=== PATIENT | female | born 1950 | race Caucasian/White ===

== ENCOUNTER 2022-03-25 08:30 | Outpatient (RCR) | payer BC, SELFPAY ==
--- NOTE | 2022-04-22 16:12 | OT.OPODN ---
OT Outpatient Ortho Daily Note OT Outpatient Ortho Daily Note Start: 01/31/22 08:05 Freq: Status: Active Protocol: Document 03/25/22 18:50 LCN (Rec: 03/25/22 19:08 LUIS ALBERTO [id number]) E-signed By Marylu Price OTR/L, CLT Type of Note Type of Note Type of Note Daily Note,Discharge Note Visit Number 7 Insurance Information Insurance Information Medicare B Outpatient History/Precautions Insurance Information Insurance Information Medicare B Current Condition/Medical Diagnosis Referring Provider Shantell Mejias, Treatment Diagnosis Bilateral hand pain, B wrist pain Date of Onset 01/21/22 Other Precautions Osteopenia. 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 Walks and does light yoga with videos for fitness ( less active with COVID has questions about safer return to fitness. 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 Can still get pretty tender with 3 pt pinch position, but has increased her pinch strength for cornelius and lateral positions. . Diann Talley is a 71 year old active female who has been struggling with arthritic changes in several areas her body including Flowback bilateral knees and cervical areas. She has a prior history of osteopenia and cervical injury bone spur since her twenties after me an accident. Occasionally she will have numbness in your hands and has had lateral epicondylitis with therapy in the past. Currently she is struggling with bilateral hand pain, CMC hypersensitivity (to being bumped, resting on joints, and pain occasional waves of hand numbness in the glove distribution and generalized stiffness every morning. It is feeling hard to know when to stretch. To cope with this, patient will utilize some cold but it is not well tolerated in general, she feels much better. Will alternate between Tylenol arthritis and ibuprofen on harder days which is helpful for all of her arthritis areas and still very much needed. She has arthritis gloves, a wrist sleeve ( helps wrist, not thumb) and some OTC splints for TH that she finds difficult to work around. Is using an ergonomic keyboard ( that is feeling large for her hand size, sometimes irritates her epicondylitis) and vertical mouse (OK, harder with click and drag/copy/paste motions). OPening food packaging, using garden tools and writing are also challenging. OT OP Daily Ortho Note/Assessment Therapeutic Exercise Therapeutic Exercise Minutes (minutes) 25 Therapeutic Exercise Comments Reviewed HEP w end ROM holds for jt blocking of MP, IP,? Opposition?x 5 sec each ?x 2 sets of 5. OK to digit EX, CMC ABD and FL gentle active hand /tendon glides ( rory hook and table top), 5 reps, hold 3 sec each for B hands. Added gentle TH stabilization/hand stabilization exercises with yellow putty for gripping, flat fist, cornelius pinch, adductors and gross digit extension. Emphasized importance of intrinsic and extensor strengthening for supporting joint integrity. Therapeutic Activity Therapeutic Activity Comments . Wrist Goniometric Wrist Right Active Flexion (70-90 degrees) 85 Active Extension (60-70 degrees) 70 Active Ulnar Deviation (20-30 degrees) 40 H Active Radial Deviation (15-20 degrees) 25 H ROM Limitations Bony Restriction,Pain Left Active Flexion (70-90 degrees) 85 Active Extension (60-70 degrees) 85 H Active Ulnar Deviation (20-30 degrees) 55 H Active Radial Deviation (15-20 degrees) 25 H ROM Limitations Bony Restriction,Pain Wrist Gross Strength Wrist Right Flexion 4 Good Extension 4 Good Ulnar Deviation 4 Good Radial Deviation 4 Good Goniometric Comments Goniometric Comments Goniometric Comments 02/11/22- Compositie flexion of R IF 2.0 cm at start, 1.0 post. MF is 1.3, RF .5 , SF . 5 cm. Less pain with gripping. Hasn't weeded garden yet. Cervical FLexion and extension , B rotation limited by 10 degrees at end range. Lateral flexion is 25 of 45 degrees and pulls in upper trapezials, SCM and levator. B SH WNL. Composite flexion of L hand is WNL for RF/SF and 1.4 of . 5 cm L IF. R hand is WNL for RF/SF. 1.3 cm MF and 2.0 cm IF. TH toses base of SF MCP head but tender at B CMCs Hand Pinch/Airplane Pilot Supervisor Strength Hand Left Airplane Pilot Supervisor Strength Position 1 (lbs) 45 Airplane Pilot Supervisor Strength Position 2 (lbs) 41 Lateral Pinch Strength (lbs) 14 Three Point Pinch (lbs) 7.5 Right Airplane Pilot Supervisor Strength Position 1 (lbs) 45 Airplane Pilot Supervisor Strength Position 2 (lbs) 35 Lateral Pinch Strength (lbs) 12 Three Point Pinch (lbs) 9 Comments Comments 03/25/22-- Airplane Pilot Supervisor stable at 42# R and 45# L, less painful. cornelius pinch improved to 14# R and 15# L. 3 pt is 4/10 tender at CMC base, but improved to 10# R and 9 # L. Edema Assessment Description Subjective Edema Description Pain OT Objective Data Hand Hand Dominance Right Observations/Posture Objective Observations Pt has bony changes and Heberden's nodes at DIP and MCP heads, especially new ones at middle finger DIP's B ( modifying line of digits with some mild deviation at DIP's), B CMC and some with MP. No ulnar drift at MCP level. Scattered tender points through extensor muscle bulk of WR forearm. Upper Extremity Special Tests Tenosynovitis Wrist Finklestein Test Negative Left,Negative Right Degenerative Arthritis Hand Trapeziometacarpal Joint Grind Test Positive Left,Positive Right Median Nerve-Carpal Tunnel Wrist Phalen Test Negative Left,Negative Right OT Problems Problems Problems Decreased Strength,Decreased Range of Motion,Decreased Dexterity,Decreased Fine Motor ,Decreased Coordination, Gripping,Pinching Other Problems Writing,Opening Containers, Computer Patient Potential Good Assessment Assessment Assessment Pt feeling pretty close to discharge level, may come in for one more visit to update hand putty HEP. Occupational Therapy Treatment Plan - OP Potential Rehabilitation Potential Good Goals Goals GOAL PROGRESS--In 12 weeks, Diann will demonstrate:? 1) Decreased pn to <2/10 80% of the time with sustained gripping, carrying groceries, typing/researching, reading books and weeding. (GOAL MET) 2) I HEP for stretching, gradual strengthening and self mgmt strategies. (GOAL MET) 3) improved B 3 point pinch to 10# with B thumb pain < 1/10. (GOAL -- Improved to 10 # R and 9# L.; not met, loop tender but feels good with her strategies and body mechanics improvements.) 4) ??Pt to be fit with functional bracing (for L and R hand based soft CMC stabilizer, velcro with Comfort Cool Small+ ) and use adaptive strategies to protect joint integrity to support less pain with ADL. ( GOAL MET) Target Date 05/02/22 Progress met Treatment Plan Treatment Plan Evaluation,Edema Control,Joint Mobilization,Manual Therapy, Paraffin Bath,Splinting, Ultrasound Other Treatment Plan 2x/wk x 2 weeks, then 1x/wk x 4 weeks to start Comment Summary discharge from OT OT Treatment Minutes Treatment Minutes Timed Treatment Minutes 30 Total Treatment Minutes 30 Occupational Therapy Billing Units Billing Units Manual Therapy 0 Self Care/Home Management 0 Therapeutic Exercise 2 Ultrasound 0 Ortho Billing Units Orthotics Initial Visit Ea 15 0 Certification Certification I Certify That: Therapy Services Provided, Therapy Plan Established, Therapy Plan Reviewed Discharge Note Discharge Note Discharge Summary GOAL PROGRESS after 7 visits. (In 12 weeks, Diann will demonstrate):? 1) Decreased pn to <2/10 80% of the time with sustained gripping, carrying groceries, typing/researching, reading books and weeding. (GOAL MET) 2) I HEP for stretching, gradual strengthening and self mgmt strategies. (GOAL MET) 3) improved B 3 point pinch to 10# with B thumb pain < 1/10. (GOAL -- Improved to 10 # R and 9# L.; not met, loop tender but feels good with her strategies and body mechanics improvements.) 4) ??Pt to be fit with functional bracing (for L and R hand based soft CMC stabilizer, velcro with Comfort Cool Small+ ) and use adaptive strategies to protect joint integrity to support less pain with ADL. ( GOAL MET) Date of First Visit for Therapy 01/31/22 Date of Last Visit for Therapy 03/25/22 Initial Primary Functional Limitations/ Diann Gerri is a 71 year [employer] old active female who has been struggling with arthritic changes in several areas her body including Flowback bilateral knees and cervical areas. She has a prior history of osteopenia and cervical injury bone spur since her twenties after me an accident. Occasionally she will have numbness in your hands and has had lateral epicondylitis with therapy in the past. Currently she is struggling with bilateral hand pain, CMC hypersensitivity (to being bumped, resting on joints, and pain occasional waves of hand numbness in the glove distribution and generalized stiffness every morning. It is feeling hard to know when to stretch. To cope with this, patient will utilize some cold but it is not well tolerated in general, she feels much better. Will alternate between Tylenol arthritis and ibuprofen on harder days which is helpful for all of her arthritis areas and still very much needed. She has arthritis gloves, a wrist sleeve ( helps wrist, not thumb) and some OTC splints for TH that she finds difficult to work around. Is using an ergonomic keyboard ( that is feeling large for her hand size, sometimes irritates her epicondylitis) and vertical mouse (OK, harder with click and drag/copy/paste motions). OPening food packaging, using garden tools and writing are also challenging. Initial Pain Level 7 Pain Level at Discharge 3 Interventions Provided During Treatment Compression Garments,Ice/Cold/ Vasopneumatic,Joint Mobilization,Manual Therapy, Orthotics/Braces,Therapeutic Exercise,Ultrasound,Self Care/ Home Management Recommendations/Reason for Discharge Met All Therapy Goals,Progress Cont w/HEP
== END 2023-01-22 23:59 | disposition home or self-care (01) ==
PROVIDERS: PCP Family Medicine; Visit Provider Family Medicine
DX: M79.641 Pain in right hand (principal); Z51.89 Encounter for other specified aftercare
CPT/HCPCS: 97035; 97110; 97140; 97165; 97535; 97760; X5282